=== PATIENT | female | born 1955 | race Caucasian/White ===

== ENCOUNTER 2021-03-02 14:25 | Outpatient (CLI) | payer BC | END 2021-03-02 14:26 | disposition home or self-care (01) | LOC: CSHMAMMO 14:25 | PROVIDERS: ATTEND Physician Assistant | DX: Z12.31 Encounter for screening mammogram for malignant neoplasm of breast (principal) | CPT/HCPCS: 77063; 77067 ==

== ENCOUNTER 2021-09-29 11:03 | Emergency (ER) | payer OTHER ==
[2021-09-29 11:53] LABS: Bilirubin Neg (Negative); Blood, Urine Negative (Negative); Clarity Clear (Clear); Glucose, Urine (Dipstick) Normal (Negative); Ketone, Urine Negative (Negative); Leukocyte 500 (Negative); Nitrite Negative (Negative); Protein, Urine (Dipstick) 15 mg/dl (Neg-Trace); Urobilinogen Normal mg/dL (Less than 2)
[2021-09-29 12:15] LABS: Bacteria/HPF Rare-Few HPF (None Seen); RBC/HPF None Seen HPF (0-3); Squamous Epithelial 0-3 HPF (0-3)
[2021-09-29 12:38] LABS: #Monocytes 0.9 10x3/uL (0.0-1.1); #Neutrophils 10.2 10x3/uL (1.5-8.4); %Basophils 0.3 % (0.0-2.0); %Eosinophils 0.3 % (0.0-6.0); %Lymphocytes 12.8 % (18.0-47.0); %Monocytes 7.2 % (0.0-10.0); %Neutrophils 78.9 % (40.0-75.0); Hemoglobin 14.1 g/dL (12.0-15.5); Mean Corpuscular Hemoglobin 30.9 pg (27.0-33.0); Mean Corpuscular Volume 90.8 fl (81.6-98.3); Mean Platelet Volume 10.3 fl (7.4-10.4); Platelet Count 236 10x3/uL (150-450); RBC Distribution Width 13.4 % (11.5-14.5); Red Blood Cell (RBC) Count 4.57 10x6/uL (3.90-5.03); White Blood Cell (WBC) Count 12.9 10x3/uL (3.5-10.5)
[2021-09-29 13:16] LABS: ALT (SGPT) 20 U/L (8-55); AST (SGOT) 12 U/L (5-34); Albumin 4.5 g/dL (3.4-4.8); Alkaline Phosphatase 43 U/L (40-110); Anion Gap 12 mmol/L (10-20); BUN (Urea Nitrogen) 7 mg/dL (9.8-20.1); Calc. Creatinine Clearance 0 mL/min (70-130); Calcium 9.7 mg/dL (7.8-10.44); Carbon Dioxide 27 mmol/L (23-31); Chloride 102 mmol/L (98-107); Globulin 2.9 g/dL (2.4-3.5); Glucose 127 mg/dL (80-115); Lipase 4 U/L (8-78); Potassium 4.5 mmol/L (3.5-5.1); Protein, Total 7.4 g/dL (5.8-8.1); Sodium 136 mmol/L (136-145)
[2021-09-29] MEDS ORDERED: Piperacillin/Tazobactam 4.5 GM VIAL ONE (16:54)
[2021-09-29] MEDS ORDERED: Ondansetron PF 4 MG/2 ML Vial ONE ×2 (16:54→18:25)
[2021-09-29 17:55] LABS: SARS-CoV-2 NAA Rapid Test Not Detected (NotDetected)
[2021-09-29] MEDS ORDERED: EPINEPHrine 1 MG/ML AMP ONE (18:01)
[2021-09-29] MEDS ORDERED: Bupivacaine PF 0.5% 30 ML VIAL ONE (18:01)
[2021-09-29] MEDS ORDERED: Fentanyl 100 MCG/2 ML VIAL ONE (18:24)
[2021-09-29] MEDS ORDERED: PROPOFOL 20 ML ONE (18:24)
[2021-09-29] MEDS ORDERED: Lidocaine 2% PF 5 ML VIAL ONE (18:25)
[2021-09-29] MEDS ORDERED: Dexamethasone 20 MG/5 ML VIAL ONE (18:25)
[2021-09-29] MEDS ORDERED: Rocuronium Bromide 10 MG/ML (10ML VIAL) ONE (18:25)
[2021-09-29] MEDS ORDERED: Ketorolac Tromethamine 30 MG/ML VIAL ONE (18:25)
[2021-09-29] MEDS ORDERED: PHENYLEPHRINE-NS 100 MCG/ML 10 ML SYRINGE ONE (18:43)
[2021-09-29] MEDS ORDERED: SUGAMMADEX SODIUM 200 MG/2 ML VIAL ONE (18:55)
[2021-09-29] MEDS ORDERED: HYDROcodone/Acetaminophen 5/325 mg Tablet PO PRN (19:10)
[2021-09-29] MEDS ORDERED: Acetaminophen 325 MG TAB PO PRN (19:10)
== END 2021-09-29 18:23 | disposition home or self-care (01) ==
LOC: CSHERS 11:03
DX: K35.80 Unspecified acute appendicitis (principal); Z20.822 Contact with and (suspected) exposure to COVID-19; I10 Essential (primary) hypertension; E78.5 Hyperlipidemia, unspecified; E78.00 Pure hypercholesterolemia, unspecified
CPT/HCPCS: 74177; 80053; 81003; 81015; 83690; 85025; 96365; 96375; J0171; J1100; J1885; J2001; J2405; J2543; J2704; J3010; S0020; U0002

== ENCOUNTER 2022-03-09 14:23 | Outpatient (CLI) | payer OTHER | END 2022-03-09 14:24 | disposition home or self-care (01) | LOC: CSHMAMMO 14:23 | PROVIDERS: ATTEND Physician Assistant | DX: Z12.31 Encounter for screening mammogram for malignant neoplasm of breast (principal) | CPT/HCPCS: 77063; 77067 ==

== ENCOUNTER 2024-03-26 14:29 | Outpatient (CLI) | payer OTHER, MEDICARE | END 2024-03-26 14:30 | disposition home or self-care (01) | LOC: CSHMAMMO 14:29 | PROVIDERS: ATTEND Physician Assistant | DX: Z13.820 Encounter for screening for osteoporosis (principal); Z78.0 Asymptomatic menopausal state; M85.89 Other specified disorders of bone density and structure, multiple sites | CPT/HCPCS: 77080 ==